=== PATIENT | female | born 1950 | race Caucasian/White ===

== ENCOUNTER → 2018-07-06 | Outpatient (CLI) | payer OTHER | LOC: BRMIMAGING 11:03 | PROVIDERS: ATTEND Internal Medicine | DX: Z13.820 Encounter for screening for osteoporosis (principal); M81.0 Age-related osteoporosis without current pathological fracture; M24.841 Other specific joint derangements of right hand, not elsewhere classified; M24.842 Other specific joint derangements of left hand, not elsewhere classified; Z78.0 Asymptomatic menopausal state | CPT/HCPCS: 73130-PO ==